=== PATIENT | male | born 1980 | race Caucasian/White ===

== ENCOUNTER 2024-05-20 01:43 | Emergency (ER) | payer OTHER ==
[2024-05-20] MEDS: Ketorolac 30 MG/ML SDV IM ONE (02:45)
[2024-05-20] MEDS: Bupivacaine 0.25% 10 ML SDV INJECT ONE (02:51)
[2024-05-20] MEDS: Dexamethasone 4 MG/ML SDV IVPUSH ONE (03:17)
[2024-05-20] MEDS: Morphine 2 MG/ML SYRINGE IM ONE (03:35)
== END 2024-05-20 03:59 | disposition home or self-care (01) ==
LOC: JP.ED 01:43
DX: M53.3 Sacrococcygeal disorders, not elsewhere classified (principal); F17.200 Nicotine dependence, unspecified, uncomplicated; Z79.899 Other long term (current) drug therapy
CPT/HCPCS: 96372; 96374; 99283; J1100; J1885; J2270; J3490